=== PATIENT | female | born 1990 | race Caucasian/White ===

== ENCOUNTER 2017-06-29 13:10 | Outpatient (CLI) | payer OTHER ==
--- NOTE | 2017-06-29 15:05 | ULT ---
GALLBLADDER ULTRASOUND: HISTORY: Right upper quadrant pain. FINDINGS: Images of the gallbladder reveal a contracted gallbladder filled with echogenic gallstones. The comm on duct is of normal caliber, at 2 to 3 mm. The liver appears unremarkable. The pancreas is mostly obscured but appears unremarkable as visualized. The right kidney is imaged and appears unremarkable . The technologist describes a negative Campbell sign. IMPRESSION: Cholelithiasis. POS: [facility]
== END 2017-06-29 13:11 | disposition home or self-care (01) ==
LOC: SCSULT 13:10
PROVIDERS: ATTEND Family Medicine
DX: K80.20 Calculus of gallbladder without cholecystitis without obstruction (principal)
CPT/HCPCS: 76705

== ENCOUNTER 2017-07-12 09:02 | Outpatient (CLI) | payer OTHER ==
[2017-07-12 10:50] LABS: BHCG - Serum Negative (NEGATIVE); Pregs Control Background? CLEAR/WHITE (CLR/WHITE); Pregs Control Bar Appear? YES (CONTROL BAR)
== END 2017-07-12 09:03 | disposition home or self-care (01) ==
LOC: EDSTATUS 09:02 → LABBT 09:02
PROVIDERS: ATTEND Surgery
DX: Z01.812 Encounter for preprocedural laboratory examination (principal); K80.20 Calculus of gallbladder without cholecystitis without obstruction
CPT/HCPCS: 84703

== ENCOUNTER 2017-07-14 07:06 | Day surgery (SDC) | payer OTHER ==
[2017-07-12 09:18] VITALS: BMI 38.6
[2017-07-14] MEDS ORDERED: Bupivacaine/Epinephrine 0.25% 30 ML VIAL ONE (09:41)
[2017-07-14] MEDS ORDERED: cefOXitin 2 GM VIAL ONE (09:50)
[2017-07-14] MEDS ORDERED: Sodium Chloride 0.9% 100 ML ONE (09:50)
[2017-07-14] MEDS ORDERED: Midazolam HCl 2 mg/2 ml Vial ONE (09:58)
[2017-07-14] MEDS ORDERED: HYDROmorphone 0.5 MG/0.5 ML SYRINGE ONE (09:59)
[2017-07-14] MEDS ORDERED: Fentanyl 100 MCG/2 ML VIAL ONE ×2 (09:59→11:20)
[2017-07-14] MEDS ORDERED: Morphine 4 MG/ML VIAL ONE ×2 (11:21→11:43)
--- NOTE | 2017-07-14 11:43 | OP ---
PREOPERATIVE DIAGNOSIS: Symptomatic cholelithiasis. SURGEON: Skip Reid M.D. PROCEDURE PERFORMED: Laparoscopic cholecystectomy. INDICATIONS: This is a 26-year-old female who has had episodic right upper quadrant pain. Ultrasoun d showed cholelithiasis. FINDINGS: Multiple large stones, small cystic duct. DESCRIPTION OF PROCEDURE: After informed consent was obtained, the patient was taken to the operatin g room and given general endotracheal anesthesia. She was placed in the supine position. The abdome n was prepped and draped in usual fashion. Local anesthesia infiltrated subcutaneously and deep. A subumbilical incision was performed. The subcu divided sharply. The fascia grasped and two stay sut ures of 0 Vicryl placed to either side of midline. Midline incised. Digital palpation revealed no l ocal adhesions. A blunt 10/12 mm trocar inserted. Pneumoperitoneum was created to a pressure of 15 mmHg. Zero degree laparoscope inserted under direct vision, three 5 mm ports placed subcostally. Ga llbladder grasped and advanced superiorly. Peritoneum lysed distally revealed small cystic duct and artery. This was dissected out as well as the cystic artery and the critical view. The cystic duct was triply ligated and divided. The artery was triply ligated and divided. The gallbladder was poonam sylvia from its fossa utilizing electrocautery, removed from the abdomen through the umbilical port. He mostasis was assured. Trocars and retractors removed. The fascia closed with interrupted 0 Vicryl s uture. The skin closed with interrupted 4-0 Rapide. Dermabond applied. The patient tolerated the p rocedure well and was transferred to recovery in good condition. Sponge and needle count verified co rrect x2.
[2017-07-14] MEDS ORDERED: PROPOFOL 200 MG/20 ML VIAL ONE (14:33)
[2017-07-14] MEDS ORDERED: Dexamethasone 20 MG/5 ML VIAL ONE (14:33)
[2017-07-14] MEDS ORDERED: Lidocaine 1% PF 5 ML VIAL ONE (14:33)
[2017-07-14] MEDS ORDERED: Ketorolac Tromethamine 30 MG/ML VIAL ONE (14:33)
[2017-07-14] MEDS ORDERED: Ondansetron HCl/PF 4 MG/2 ML Vial ONE (14:33)
== END 2017-07-14 14:33 | disposition home or self-care (01) ==
LOC: SDC 07:06
PROVIDERS: ATTEND Surgery
PROC: 0FT44ZZ Resection of Gallbladder, Percutaneous Endoscopic Approach (ICD-10-PCS; principal; 2017-07-14)
DX: K80.10 Calculus of gallbladder with chronic cholecystitis without obstruction (principal); F17.210 Nicotine dependence, cigarettes, uncomplicated; E03.9 Hypothyroidism, unspecified; F90.9 Attention-deficit hyperactivity disorder, unspecified type; Z79.899 Other long term (current) drug therapy
CPT/HCPCS: 88304; 96374; J0131; J0694; J1100; J1170; J1885; J2001; J2250; J2270; J2405; J2704; J3010; J7050

== ENCOUNTER 2018-12-12 08:54 | Outpatient (CLI) | payer BC ==
--- NOTE | 2018-12-12 10:36 | RAD ---
LEFT WRIST THREE VIEWS: HISTORY: Left wrist swelling for a couple days. COMPARISON: None. FINDINGS: Three views of the left wrist show no evidence for acute fracture or dislocation. Hardware is seen in the radius and ulna from prior fracture repair. No degenerative changes are seen. IMPRESSION: No evidence of acute osseous abnormality. POS: [facility]
== END 2018-12-12 08:55 | disposition home or self-care (01) ==
LOC: SCSRAD 08:54
PROVIDERS: ATTEND Nurse Practitioner Family
DX: M25.532 Pain in left wrist (principal)

== ENCOUNTER → 2020-05-02 | Day surgery (SDC) | payer BC | LOC: BICULT 12:40 | PROVIDERS: ATTEND Advanced Practice Midwife | PROC: 0HBU3ZX Excision of Left Breast, Percutaneous Approach, Diagnostic (ICD-10-PCS; principal; 2020-05-02) | DX: D49.3 Neoplasm of unspecified behavior of breast (principal) | CPT/HCPCS: 19083; 88305 ==

== ENCOUNTER 2020-10-08 18:30 | Outpatient (CLI) | payer BC | END 2020-10-08 18:31 | disposition home or self-care (01) | LOC: SLEEPLAB 18:30 | PROVIDERS: ATTEND Family Medicine | DX: G47.33 Obstructive sleep apnea (adult) (pediatric) (principal); K21.9 Gastro-esophageal reflux disease without esophagitis; F90.9 Attention-deficit hyperactivity disorder, unspecified type | CPT/HCPCS: 95806 ==